=== PATIENT | female | born 1985 | race Caucasian/White ===

== ENCOUNTER → 2018-06-10 | Outpatient (CLI) | payer OTHER ==
--- NOTE | 2018-06-10 16:58 | KCIC ---
EXAM: Chest, single view. HISTORY: Tuberculosis exposure. COMPARISON: None. FINDINGS: A frontal view of the chest is obtained. There is no infiltrate, pleural effusion or pneumothorax. The heart is normal in size. There is thoracic scoliosis. There is a calcified granuloma within the right lower lobe. IMPRESSION: No acute pulmonary finding or evidence of pulmonary tuberculosis. Electronically signed by: Peace Rojas MD (06/10/2018 4:55 PM) [facility]
== END | disposition home or self-care (01) ==
LOC: KCIC 15:48
PROVIDERS: ATTEND Family Medicine
DX: M41.84 Other forms of scoliosis, thoracic region (principal); J84.10 Pulmonary fibrosis, unspecified
CPT/HCPCS: 71045